=== PATIENT | male | born 1965 | race Caucasian/White ===

== ENCOUNTER 2018-12-04 09:31 | Emergency (ER) | payer OTHER ==
[~2018-12-04] VITALS: Ht 172.7 cm; Wt 81.7 kg
[2018-12-04 09:57] LABS: ABSOLUTE BASOPHILS 0.1 thou/uL (0.0-0.2); ABSOLUTE EOSINOPHILS 0.1 thou/uL (0.0-0.7); ABSOLUTE LYMPHOCYTES 1.2 thou/uL (0.8-5.3); ABSOLUTE MONOCYTES 0.5 thou/uL (0.0-1.2); ABSOLUTE NEUTROPHILS 4.4 thou/uL (1.6-8.1); BASOPHILS 1.2 %; EOSINOPHILS 0.8 %; HEMATOCRIT 48.6 % (42.0-52.0); HEMOGLOBIN 16.8 gm/dL (14.0-18.0); LYMPHOCYTES 18.7 %; MCH 30.6 pg (26.0-34.0); MCHC 34.5 g/dL (28.0-37.0); MCV 88.9 fL (80.0-100.0); MONOCYTES 8.4 %; MPV 7.8 fl. (7.2-11.1); NUCLEATED RBCS 0 /100WBC; PLATELET COUNT* 264 thou/uL (150-400); POLYS 70.9 %; RBC 5.47 mil/uL (4.50-6.00); RDW-CV 13.3 % (10.5-14.5); WBC 6.3 thou/uL (4.0-11.0)
[2018-12-04 10:48] LABS: ANION GAP 6 mmol/L (7-16); BUN 17 mg/dL (7-18); CALCIUM 9.5 mg/dL (8.5-10.1); CHLORIDE 103 mmol/L (98-107); CO2 29 mmol/L (21-32); CREATININE 1.4 mg/dL (0.6-1.3); GLUCOSE 132 mg/dL (70-99); POTASSIUM 4.4 mmol/L (3.5-5.1); SODIUM 138 mmol/L (136-145); TROPONIN-I LEVEL <0.06 ng/mL (<0.06)
[2018-12-04 10:51] LABS: ALBUMIN 4.2 g/dL (3.4-5.0); ALKALINE PHOSPHATASE 77 U/L (46-116); SGOT 35 U/L (15-37); SGPT 32 U/L (30-65); TOTAL BILIRUBIN 0.6 mg/dL (<0.1-1.0); TOTAL PROTEIN 8.5 g/dL (6.4-8.2)
[2018-12-04 11:03] LABS: POC CA IONIZED 5.1 mg/dL (4.5-5.3); POC HEMOGLOBIN 16.3 g/dL (12.0-17.0); POC POTASSIUM 4.3 mmol/L (3.5-4.9)
[2018-12-04] MEDS ORDERED: HYDROCODONE-AP1 EAC6 PO (12:00)
[2018-12-04] MEDS ORDERED: ATIVAN1 MG PO (12:00)
[2018-12-04 12:58] VITALS: BP 155/95
--- NOTE | 2018-12-04 15:44 | EKG ---
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
== END 2018-12-04 12:58 | disposition home or self-care (01) ==
LOC: M.ERS 09:31
PROVIDERS: Emergency Medicine Emergency Medical Services
DX: S21.102A Unspecified open wound of left front wall of thorax without penetration into thoracic cavity, initial encounter (principal); S20.312A Abrasion of left front wall of thorax, initial encounter; W32.0XXA Accidental handgun discharge, initial encounter; Y93.89 Activity, other specified; Y92.89 Other specified places as the place of occurrence of the external cause; Y99.8 Other external cause status